=== PATIENT | female | born 1990 | race Caucasian/White ===

== ENCOUNTER 2016-10-14 15:56 | Emergency (ER) | payer OTHER ==
[~2016-10-14] VITALS: Ht 170.2 cm; Wt 70.3 kg
--- NOTE | 2016-10-14 15:58 | NUR ---
PRESENTS SELF TO ED FOR VACCINE- GOT EXPOSED TO BAT WITHOUT KNOWN BITE. AWAITING MD ORDER
[2016-10-14] MEDS ORDERED: RABIES VACCINE (PCEC)/PF 1 EA KIT IM ONE ×2 (16:21→16:30)
--- NOTE | 2016-10-14 16:39 | NUR ---
Patient discharged to home in stable condition. Written and verbal after care instructions given. Patient verbalizes understanding of instruction.
[2016-10-14 16:40] VITALS: BP 134/76
== END 2016-10-14 16:41 | disposition home or self-care (01) ==
LOC: ER 15:58
DX: T75.89XA Other specified effects of external causes, initial encounter (principal); Z23 Encounter for immunization; X58.XXXA Exposure to other specified factors, initial encounter; Y93.89 Activity, other specified; Y92.89 Other specified places as the place of occurrence of the external cause; Y99.9 Unspecified external cause status
CPT/HCPCS: 90471; 90675; 99283; A4606; Z7610